=== PATIENT | female | born 1985 | race Caucasian/White ===

== ENCOUNTER 2021-03-27 17:25 | Emergency (ER) | payer OTHER ==
[~2021-03-27] VITALS: Ht 152.4 cm; Wt 77.1 kg
[~2021-03-27 17:25] MED LIST: OSEL75CA PO
== END 2021-03-27 22:15 | disposition home or self-care (01) ==
LOC: ER 17:25
DX: U07.1 COVID-19 (principal); J06.9 Acute upper respiratory infection, unspecified; J32.9 Chronic sinusitis, unspecified; B34.9 Viral infection, unspecified

== ENCOUNTER 2021-03-31 09:15 | Outpatient (CLI) | payer OTHER | END 2021-03-31 11:00 | disposition home or self-care (01) | LOC: ASH CLINIC 09:15 | PROVIDERS: ATTEND General Practice | DX: Z23 Encounter for immunization (principal); U07.1 COVID-19 ==

== ENCOUNTER 2022-05-26 10:07 | Emergency (ER) | payer OTHER ==
[~2022-05-26] VITALS: Ht 152.4 cm; Wt 68.0 kg
== END 2022-05-26 13:20 | disposition home or self-care (01) ==
LOC: ER 10:07
DX: U07.1 COVID-19 (principal); B34.9 Viral infection, unspecified

== ENCOUNTER 2024-06-22 09:39 | Emergency (ER) | payer OTHER ==
[~2024-06-22] VITALS: Ht 152.4 cm; Wt 66.2 kg
[2024-06-22] MEDS ORDERED: 0.9 % SODIUM CHLORIDE 1,000 ML IV STA (12:05)
[2024-06-22 12:33] LABS: HEMATOCRIT 34.9 % (36.0-45.00); HEMOGLOBIN 11.4 g/dL (12.0-15.00); MEAN CELL VOLUME 88.5 fL (80.00-100.00); MEAN CORPUSCULAR HEMOGLOBIN 28.9 pg (27.00-32.0); MEAN CORPUSCULAR HGB CONC 32.7 g/dl (32.0-36.0); PLATELET COUNT 243 K/uL (150-450); RED BLOOD COUNT 3.94 M/uL (4.00-6.00)
[2024-06-22 12:35] LABS: RED CELL DISTRIBUTION WIDTH 17.5 % (11.5-14.5)
[2024-06-22 12:46] LABS: CALCIUM 9.2 mg/dL (8.5-10.1); CREATININE SERUM 0.63 mg/dL (0.55-1.02); GFR 104.66; POTASSIUM 3.99 mEq/L (3.5-5.1)
== END 2024-06-22 15:26 | disposition home or self-care (01) ==
LOC: ER 09:41
PROVIDERS: Emergency Medicine
DX: K52.1 Toxic gastroenteritis and colitis (principal); T45.1X5A Adverse effect of antineoplastic and immunosuppressive drugs, initial encounter; Y92.89 Other specified places as the place of occurrence of the external cause; Z85.3 Personal history of malignant neoplasm of breast

== ENCOUNTER 2025-07-13 08:40 | Emergency (ER) | payer OTHER ==
[~2025-07-13] VITALS: Ht 152.4 cm; Wt 68.0 kg
[2025-07-13] MEDS ORDERED: DIPHENHYDRAMINE HCL 50 MG/ML VIAL 1ML IV ONE (10:15)
[2025-07-13] MEDS ORDERED: FAMOTIDINE/PF 20 MG/2 ML VIAL IV PUSH ONE (10:30)
[2025-07-13] MEDS ORDERED: METHYLPREDNISOLONE SOD SUCC 125 MG VIAL IV ONE (10:30)
[2025-07-13 11:30] LABS: BASO % 0.6 % (0.1-1.2); EOS # 0.10 (0.04-0.54); EOS % 1.1 % (0.7-7.0); LYMPH # 1.94 (1.18-3.74); LYMPH % 21.5 % (19.3-53.1); MEAN PLATELET VOLUME 9.40 fl (9.4-12.4); MONO # 0.42 (0.24-0.82); MONO % 4.6 % (4.7-12.5); NEUT # 6.50 (1.56-6.13); NEUT % 71.9 % (34.0-71.1); RED CELL DISTRIBUTION WIDTH 13.2 % (11.6-14.4)
[2025-07-13] MEDS ORDERED: ITCH RELIEF15 G1 TOP (12:54)
[2025-07-13] MEDS ORDERED: ZYRTEC10 M3 PO (12:54)
== END 2025-07-13 15:00 | disposition home or self-care (01) ==
LOC: ER 08:40
DX: L25.9 Unspecified contact dermatitis, unspecified cause (principal); B36.9 Superficial mycosis, unspecified; Z85.3 Personal history of malignant neoplasm of breast